=== PATIENT | male | born 1955 | race American Indian/Alaskan Native ===

== ENCOUNTER 2021-10-04 11:23 | Emergency (ER) | payer SELFPAY ==
--- NOTE | 2021-10-04 13:02 | Emergency Department Report ---
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 Hit left middle finger and have a finger lac MD Complaint: Injury to:: left, finger -: Sudden, days(s) (3) Other Extremity Injury: Fingers: Left Other Injuries: none Handedness: right Place: work Severity scale (0 -10): 2 Improves With: none Worsens With: none Treatments Prior to Arrival: bandage - Related Data Previous Rx's Medication Instructions Recorded Last Taken Type cephALEXin [Keflex] 500 mg PO Q12HR #14 cap 10/04/21 Unknown Rx Allergies Allergy/AdvReac Type Severity Reaction Status Date / Time No Known Allergies Allergy Unverified 10/04/21 11:51 ED Review of Systems ROS: Stated complaint: FINGER INJURY Other details as noted in HPI Constitutional: denies: chills, fever Eyes: denies: eye pain, eye discharge, vision change ENT: denies: ear pain, throat pain Respiratory: denies: cough, shortness of breath, wheezing Cardiovascular: denies: chest pain, palpitations Endocrine: no symptoms reported Gastrointestinal: denies: abdominal pain, nausea, diarrhea Genitourinary: denies: urgency, dysuria Musculoskeletal: denies: back pain, joint swelling, arthralgia Skin: denies: rash, lesions Neurological: denies: headache, weakness, paresthesias Psychiatric: denies: anxiety, depression Hematological/Lymphatic: denies: easy bleeding, easy bruising ED Past Medical Hx - Past Medical History Previous Medical History?: No - Surgical History Past Surgical History?: No - Medications Home Medications: Home Medications Medication Instructions Recorded Confirmed Last Taken Type cephALEXin [Keflex] 500 mg PO Q12HR #14 cap 10/04/21 Unknown Rx ED Physical Exam - General Limitations: No Limitations General appearance: alert, in no apparent distress - Head Head exam: Present: atraumatic, normocephalic - Eye Eye exam: Present: normal appearance - ENT ENT exam: Present: mucous membranes moist - Neck Neck exam: Present: normal inspection - Respiratory Respiratory exam: Present: normal lung sounds bilaterally. Absent: respiratory distress - Cardiovascular Cardiovascular Exam: Present: regular rate, normal rhythm. Absent: systolic murmur, diastolic murmur, rubs, gallop - GI/Abdominal GI/Abdominal exam: Present: soft, normal bowel sounds - Rectal Rectal exam: Present: deferred - Extremities Exam Extremities exam: Present: normal inspection - Expanded Upper Extremity Exam Left General: Present: laceration - Back Exam Back exam: Present: normal inspection - Neurological Exam Neurological exam: Present: alert, oriented X3 - Psychiatric Psychiatric exam: Present: normal affect, normal mood - Skin Skin exam: Present: warm, dry, intact, normal color. Absent: rash ED Course - Reevaluation(s) Reevaluation #1: 10/04/21 13:00 lac from , will clean and steri strip and abx tetnaus updated Critical care attestation.: If time is entered above; I have spent that time in minutes in the direct care of this critically ill patient, excluding procedure time. ED Disposition Clinical Impression: Laceration of left middle finger Disposition: HOME / SELF CARE / HOMELESS Is pt being admited?: No Does the pt Need Aspirin: No Condition: Stable Instructions: Laceration Care, Adult, Nonsutured Laceration Care Prescriptions: cephALEXin [Keflex] 500 mg PO Q12HR #14 cap Referrals: PRIMARY CARE, [Primary Care Provider] - 3-5 Days
--- NOTE | 2021-10-04 13:29 | XRay Report ---
LEFT FINGER(S) 3 VIEW(S) INDICATION / CLINICAL INFORMATION: injury L 3rd DIGIT COMPARISON: None available. FINDINGS: BONES / JOINT(S): No acute fracture or subluxation. No significant arthritis. SOFT TISSUES: No significant abnormality. ADDITIONAL FINDINGS: None. Signer Name: Yovany Chakraborty DO Signed: 10/04/2021 1:25 PM Workstation Name: [id number]
[2021-10-04 13:38] VITALS: BP 181/101
== END 2021-10-04 13:42 | disposition home or self-care (01) ==
LOC: ED 11:23
DX: S61.213A Laceration without foreign body of left middle finger without damage to nail, initial encounter (principal); W22.8XXA Striking against or struck by other objects, initial encounter; Y93.89 Activity, other specified; Y92.89 Other specified places as the place of occurrence of the external cause; Y99.8 Other external cause status
CPT/HCPCS: 99283

== ENCOUNTER 2021-10-10 10:42 | Emergency (ER) | payer SELFPAY ==
[2021-10-10 11:06] VITALS: BP 170/93
--- NOTE | 2021-10-10 11:19 | Emergency Department Report ---
- General Chief Complaint: Laceration/Recheck/Suture Stated Complaint: OPEN SORE Time Seen by Provider: 10/10/21 11:08 Source: patient Mode of arrival: Ambulatory Limitations: No Limitations - History of Present Illness Initial Comments: 66-year-old male presents to emergency department for evaluation of left middle finger wound. He states that he finger over a week ago then was seen here on October 04 because the wound has not closed up, and he states that it was closed with strips while he was here but no strips have come apart he is here for evaluation. He denies drainage from area or fever. He denies any new injury. -: Gradual, days(s) Extremity Location: Left: Hand Patient Tetanus UTD: Yes Context: other (Injured at work over a week ago) - Related Data Previous Rx's Medication Instructions Recorded Last Taken Type cephALEXin [Keflex] 500 mg PO Q12HR #14 cap 10/04/21 Unknown Rx Allergies Allergy/AdvReac Type Severity Reaction Status Date / Time No Known Allergies Allergy Unverified 10/04/21 11:51 ED Review of Systems ROS: Stated complaint: OPEN SORE Other details as noted in HPI Comment: All other systems reviewed and negative Constitutional: denies: fever Eyes: denies: eye pain ENT: denies: ear pain Respiratory: denies: cough, shortness of breath Cardiovascular: denies: chest pain Endocrine: no symptoms reported Gastrointestinal: denies: vomiting Genitourinary: denies: dysuria Musculoskeletal: denies: back pain Skin: denies: rash, lesions Neurological: denies: headache Psychiatric: denies: anxiety Hematological/Lymphatic: denies: easy bleeding ED Past Medical Hx - Medications Home Medications: Home Medications Medication Instructions Recorded Confirmed Last Taken Type cephALEXin [Keflex] 500 mg PO Q12HR #14 cap 10/04/21 Unknown Rx ED Physical Exam - General Limitations: No Limitations General appearance: alert, in no apparent distress - Head Head exam: Present: atraumatic, normocephalic - Eye Eye exam: Present: normal appearance. Absent: conjunctival injection - Neck Neck exam: Present: normal inspection - Respiratory Respiratory exam: Absent: respiratory distress - Cardiovascular Cardiovascular Exam: Present: regular rate - GI/Abdominal GI/Abdominal exam: Absent: distended - Expanded Upper Extremity Exam Left Hand Wrist exam: Present: swelling (Minimal swelling noted to tip of left middle finger in the area of the laceration), laceration (To tip of left middle finger) Vascular: Present: normal capillary refill. Absent: vascular compromise, pulse deficit radial art - Back Exam Back exam: Present: normal inspection - Neurological Exam Neurological exam: Present: alert, oriented X3 - Psychiatric Psychiatric exam: Present: normal affect, normal mood - Skin Skin exam: Present: warm, dry, normal color ED Course Vital Signs 10/10/21 10:59 Temperature 98.2 F Pulse Rate 82 Respiratory 18 Rate Blood Pressure 170/93 O2 Sat by Pulse 98 Oximetry ED Medical Decision Making - Medical Decision Making 66-year-old male presents to emergency department for evaluation of left middle finger wound. He states that he finger over a week ago then was seen here on October 04 because the wound has not closed up, and he states that it was closed with strips while he was here but no strips have come apart he is here for evaluation. He denies drainage from area or fever. He denies any new injury Laceration cleaned. Given that laceration is old and no bleeding or drainage noted. Will place a Band-Aid over the laceration and place finger in aluminum finger splint because it is taking so long to heal because it is right at the joint and movement prolongs healing. He will be advised to use finger splint most of the day, to keep wound clean and dry, to place Neosporin to the wound twice daily. He was advised to follow-up in the emergency department if he develops swelling, erythema, drainage, or fever. He verbalized understanding of and agreement with plan of care. Critical care attestation.: If time is entered above; I have spent that time in minutes in the direct care of this critically ill patient, excluding procedure time. ED Disposition Clinical Impression: Visit for wound check Disposition: HOME / SELF CARE / HOMELESS Is pt being admited?: No Does the pt Need Aspirin: No Condition: Stable Instructions: Wound Care, Adult Additional Instructions: Keep wound clean and dry. Applied Neosporin ointment twice a day. Follow-up with primary care provider if worsening symptoms. Referrals: NEISHA SINGLETON MD [Primary Care Provider] - 3-5 Days Time of Disposition: 11:23
== END 2021-10-10 12:02 | disposition home or self-care (01) ==
LOC: ED 10:42
DX: S61.213D Laceration without foreign body of left middle finger without damage to nail, subsequent encounter (principal); Z79.899 Other long term (current) drug therapy; X58.XXXD Exposure to other specified factors, subsequent encounter
CPT/HCPCS: 99282